=== PATIENT | female | born 1970 | race Caucasian/White ===

== ENCOUNTER → 2022-12-11 14:52 | Outpatient (BNVA) | payer OTHER, SELFPAY | PROVIDERS: Family Provider Family Medicine; PCP Family Medicine; Visit Provider Registered Nurse | DX: R31.9 Hematuria, unspecified (principal) | CPT/HCPCS: 81000 ==

== ENCOUNTER → 2022-12-18 08:39 | Outpatient (BNVA) | payer OTHER, SELFPAY | PROVIDERS: Family Provider Family Medicine; PCP Family Medicine; Visit Provider Registered Nurse | DX: Z12.11 Encounter for screening for malignant neoplasm of colon (principal) | CPT/HCPCS: 82270 ==

== ENCOUNTER → 2022-12-26 12:11 | Outpatient (BNVA) | payer OTHER, SELFPAY | PROVIDERS: Family Provider Family Medicine; PCP Family Medicine; Visit Provider Nurse Practitioner Women's Health | DX: R58 Hemorrhage, not elsewhere classified (principal); N39.0 Urinary tract infection, site not specified | CPT/HCPCS: 84315; 87086 ==

== ENCOUNTER 2023-02-04 08:06 | Day surgery (SDC) | payer OTHER, SELFPAY ==
[2023-02-02 11:36] VITALS: BMI 49.9
[2023-02-04 08:36] VITALS: BP 196/126; PULSE 84; RESP 18; TEMP 36.1; O2SAT 99
[2023-02-04] MEDS: sodium chloride 0.9% 1,000 ML 30 ML IV (08:43)
--- NOTE | 2023-02-04 09:14 | ANES.PREANE2 ---
Pre-Anesthetic Assessment Height/Weight: Height 1.63 m Weight 131.995 kg Temp Pulse Resp BP Pulse Ox O2 Del Method 97.0 F L 84 18 196/126 99 02/04/23 08:36 02/04/23 08:36 02/04/23 08:36 02/04/23 08:36 02/04/23 08:36 02/04/23 08:36 Preop Diagnosis: GERD,screening Operation Date: 02/04/23 09:45 Proposed Procedures p 58474 EGD 16787 Colonoscopy Z12.11,k21.9(Not Applicable) - Michael Bryant DO s Colonoscopy(Not Applicable) - Michael Bryant DO Was Beta Alf taken within 24 hours: N/A Was Clonidine taken within 24 hours: N/A Last intake: Intake Last Liquid Date 02/03/23 Last Liquid Time 22:00 Last Solid Date 02/02/23 Last Solid Time 18:00 Social No alcohol and No tobacco Exam alert, oriented x 3, clear to auscultation bilaterally and regular rate & rhythm Airway Submandibular: within normal limits Cervical ROM: within normal limits Mallampati: Class III Dentition: full History/ROS No significant history except as noted and No significant complaints Pulmonary None reported CV/HEM Hypertension None reported Hepatic None reported GI Gastroesophageal Reflux Disease Metabolic Morbid Obesity Musc/skel Lower Back Pain Neuropsych Anxiety Anesthetic Plan ASA status: 3 Anesthesia: Anesthesia Evaluation and MAC Risk of > 500 ml blood loss (7ml/kg in children): No Medications/Allergies Home Medications Medication Instructions Recorded Confirmed Last Taken Type magnesium chloride 64 mg 64 mg PO DAILY 12/11/22 02/04/23 2 Weeks Ago History (magnesium chloride) ~01/19/23 tablet,delayed release (Mag 64) multivitamin (Daily Multi-Vitamin 1 tab PO DAILY 12/11/22 02/04/23 2 Weeks Ago History tablet) ~01/19/23 estradiol 0.01% (0.1 mg/gram) 1 g vaginal .3 times weekly #42.5 12/26/22 02/04/23 2 Weeks Ago Rx vaginal cream (Estrace) grams ~01/19/23 metronidazole 500 mg tablet 500 mg PO BID 7 days #14 tabs 12/30/22 02/04/23 2 Weeks Ago Rx ~01/19/23 dihydroxyaluminum sodium carb 334 334 mg PO DAILY PRN Nausea 01/02/23 02/04/23 2 Weeks Ago History mg chewable tablet ~01/19/23 sodium citrate 230 mg chewable 230 mg PO DAILY PRN Nausea 01/02/23 02/04/23 2 Weeks Ago History tablet (Nauzene Upset ~01/19/23 Stomach-Nausea) omeprazole 40 mg capsule,delayed 40 mg PO BID 6 weeks #84 caps 01/05/23 02/04/23 2 Weeks Ago Rx release ~01/19/23 Allergies Allergy/AdvReac Type Severity Reaction Status Date / Time adhesive tape Allergy Severe ALGY-Rash Verified 02/04/23 08:35 Latex, Natural Rubber Allergy Mild burning Verified 02/04/23 08:35 Current Medications Generic Name Dose Route Start Last Admin Trade Name Freq PRN Reason Stop Dose Admin Sodium Chloride 1,000 mls @ 30 mls/hr 02/04/23 08:45 02/04/23 08:43 Sodium Chloride 0.9% IV 02/05/23 08:44 30 mls/hr .Q24H MONTEZ Administration PFSH Anesthesia Medical History No pertinent past medical history neghx:htn,dm,thyroid,dvt/pe PCP: Fletcher Cole Surgical History H/O: hysterectomy (~2013) Robotic, laparoscopic Hysterectomy. Ovaries spared. Performed for large fibroid, [facility]. [place] History of laminectomy two surgeries Family History Grandfather Diabetes type 1 Brother Diabetes half brother type 2 Denies family history of Colon cancer Ovarian cancer Heart disease Hyperlipidemia Breast cancer Hypertension Uterine cancer Thyroid condition Stroke Data Anesthesia Cardiac Studies: No Data to Display
--- NOTE | 2023-02-04 10:07 | PM.HP ---
Providers/Chief Complaint Primary Care Provider: Fletcher Cole Chief Complaint: Z12.11, K21.9 History of Present Illness Whit Porras is a 52 year old female here for EGD and colonoscopy Medications/Allergies Home Medications Medication Instructions Recorded Confirmed Last Taken Type magnesium chloride 64 mg 64 mg PO DAILY 12/11/22 02/04/23 2 Weeks Ago History (magnesium chloride) ~01/19/23 tablet,delayed release (Mag 64) multivitamin (Daily Multi-Vitamin 1 tab PO DAILY 12/11/22 02/04/23 2 Weeks Ago History tablet) ~01/19/23 estradiol 0.01% (0.1 mg/gram) 1 g vaginal .3 times weekly #42.5 12/26/22 02/04/23 2 Weeks Ago Rx vaginal cream (Estrace) grams ~01/19/23 metronidazole 500 mg tablet 500 mg PO BID 7 days #14 tabs 12/30/22 02/04/23 2 Weeks Ago Rx ~01/19/23 dihydroxyaluminum sodium carb 334 334 mg PO DAILY PRN Nausea 01/02/23 02/04/23 2 Weeks Ago History mg chewable tablet ~01/19/23 sodium citrate 230 mg chewable 230 mg PO DAILY PRN Nausea 01/02/23 02/04/23 2 Weeks Ago History tablet (Nauzene Upset ~01/19/23 Stomach-Nausea) omeprazole 40 mg capsule,delayed 40 mg PO BID 6 weeks #84 caps 01/05/23 02/04/23 2 Weeks Ago Rx release ~01/19/23 Allergies Allergy/AdvReac Type Severity Reaction Status Date / Time adhesive tape Allergy Severe ALGY-Rash Verified 02/04/23 08:35 Latex, Natural Rubber Allergy Mild burning Verified 02/04/23 08:35 PFSH Acute PFSH: Medical History No pertinent past medical history neghx:htn,dm,thyroid,dvt/pe PCP: Fletcher Cole Surgical History H/O: hysterectomy (~2013) Robotic, laparoscopic Hysterectomy. Ovaries spared. Performed for large fibroid, [facility]. [place] History of laminectomy two surgeries Family History Grandfather Diabetes type 1 Brother Diabetes half brother type 2 Denies family history of Colon cancer Ovarian cancer Heart disease Hyperlipidemia Breast cancer Hypertension Uterine cancer Thyroid condition Stroke Vitals/I&O/Wt Last Vital Signs Temp 97.0 F L 02/04/23 08:36 Pulse 84 02/04/23 08:36 Resp 18 02/04/23 08:36 BP 196/126 02/04/23 08:36 Pulse Ox 99 02/04/23 08:36 O2 Del Method 02/04/23 08:36 Weight last 48 hrs Weight 291 lb A&P Assessment and plan (1) GERD (gastroesophageal reflux disease): (2) Screening for colon cancer: Plan EGD and colonoscopy Attestations Medical Necessity Statement*: Home Coding Level of Care Code Acute Code for Chg Fwd Diagnoses GERD (gastroesophageal reflux disease) K21.9 Screening for colon cancer Z12.11
[2023-02-04 10:57] VITALS: BP 125/77; PULSE 83; RESP 20; TEMP 36.3; O2SAT 98
[2023-02-04 11:10] VITALS: BP 141/97; PULSE 82; RESP 20; O2SAT 100
--- NOTE | 2023-02-04 13:15 | ANE.PACU2 ---
Inpatient post-anesthesia follow up: Airway intact: Yes Vital signs: Temperature 97.3 F Pulse Rate 82 Respiratory Rate 20 Blood Pressure 141/97 Pulse Oximetry 100 Oxygen Delivery Me thod Nasal Cannula Oxygen Flow Rate 4 Fraction of Inspir ed Oxygen Hydration adequate: Yes Nausea and vomiting: No Pain level: 1 Mental status: Baseline
== END 2023-02-04 11:40 | disposition home or self-care (01) ==
PROVIDERS: PCP Nurse Practitioner Family; Visit Provider Surgery
PROC: 0DJ08ZZ Inspection of Upper Intestinal Tract, Via Natural or Artificial Opening Endoscopic (ICD-10-PCS; CPT 43235; principal; 2023-02-04 09:45)
PROC: 0DJD8ZZ Inspection of Lower Intestinal Tract, Via Natural or Artificial Opening Endoscopic (ICD-10-PCS; CPT 45378; 2023-02-04 09:45)
DX: Z12.11 Encounter for screening for malignant neoplasm of colon (principal); K64.8 Other hemorrhoids; E66.01 Morbid (severe) obesity due to excess calories; Z68.42 Body mass index [BMI] 45.0-49.9, adult
CPT/HCPCS: 43239; 45378; 88305; J2704; J3490; J7030

== ENCOUNTER → 2023-12-07 12:47 | Outpatient (BNVA) | payer OTHER, SELFPAY | PROVIDERS: PCP Nurse Practitioner Family; Visit Provider Nurse Practitioner Family | DX: J02.9 Acute pharyngitis, unspecified (principal); J06.9 Acute upper respiratory infection, unspecified | CPT/HCPCS: 87880 ==